=== PATIENT | male | born 1990 | race Caucasian/White ===

== ENCOUNTER 2017-01-26 09:55 | Emergency (ER) | payer MEDICAID ==
[~2017-01-26] VITALS: Ht 170.2 cm; Wt 85.7 kg
[2017-01-26 12:17] VITALS: BP 135/2
== END 2017-01-26 12:17 | disposition home or self-care (01) ==
LOC: ED 09:55
DX: M25.562 Pain in left knee (principal)
CPT/HCPCS: J1885

== ENCOUNTER 2017-03-21 18:06 | Emergency (ER) | payer SELFPAY ==
[~2017-03-21] VITALS: Ht 167.6 cm; Wt 84.4 kg
[2017-03-21 20:57] VITALS: BP 116/71
== END 2017-03-21 20:57 | disposition home or self-care (01) ==
LOC: ED 18:06
DX: S63.592A Other specified sprain of left wrist, initial encounter (principal); X58.XXXA Exposure to other specified factors, initial encounter; Y93.89 Activity, other specified; Y92.89 Other specified places as the place of occurrence of the external cause; Y99.8 Other external cause status
CPT/HCPCS: A4570

== ENCOUNTER 2018-04-05 02:25 | Inpatient (IN) | payer OTHER ==
[~2018-04-05] VITALS: Ht 170.2 cm; Wt 80.9 kg
[2018-04-05 02:36] VITALS: Ht 170.2 cm; Wt 80.9 kg
[2018-04-05 03:42] LABS: CALCIUM 8.9 mg/dL (8.5-10.1); CARBON DIOXIDE 27.7 mmol/L (21-32); CHLORIDE SERUM 100 mmol/L (98-107); CREATININE SERUM 0.8 mg/dL (0.7-1.3); GFR1 > 60 mL/min; GLUCOSE SERUM 116 mg/dL (74-106); POTASSIUM SERUM 3.5 mmol/L (3.5-5.1); SODIUM SERUM 138 mmol/L (136-145)
[2018-04-05 03:47] LABS: ALBUMIN 3.9 g/dL (3.4-5.0); ALKALINE PHOSPHATASE 83 U/L (46-116); ALT/SGPT 63 U/L (16-63); AST/SGOT 26 U/L (15-37); BILIRUBIN TOTAL 0.3 mg/dL (0.20-1.00); TOTAL PROTEIN, SERUM 7.5 g/dL (6.4-8.2)
[2018-04-05 04:00] VITALS: BP 130/87
[2018-04-05 04:00] LABS: PHOSPHOROUS 3.4 mg/dL (2.5-4.9)
[2018-04-05 04:01] LABS: CHOLESTEROL/HDL RATIO 4.3
[2018-04-05 04:03] LABS: T3 TOTAL 1.27 ng/mL
[2018-04-05 04:12] LABS: FREE THYROXINE INDEX 3.3 ug/dL (1.4-4.5)
[2018-04-05 04:20] LABS: BASOPHIL % 0.4 % (0-2); PLATELET COUNT 379 x10^3mcL (130-400); RED CELL DISTRIBUTION WIDTH 13.4 % (11.5-14.5)
[2018-04-05 08:17] LABS: microscopic required? NO
[2018-04-05 08:36] LABS: urine erythrocyte NEGATIVE (NEGATIVE)
[2018-04-05 09:25] LABS: AMPHETAMINE QUAL UR POSITIVE (NEG <=1000)
[2018-04-05] MEDS ORDERED: ANUHCC TOP (15:50)
[2018-04-05] MEDS ORDERED: IBUPROFEN600 MG PO (15:51)
[2018-04-05 16:06] VITALS: BP 97/53
[2018-04-05 16:57] VITALS: BP 97/53
[2018-04-05 17:07] VITALS: BP 92/65
== END 2018-04-05 18:34 | disposition home or self-care (01) | DRG 349 ==
LOC: ED 02:25 → DU 03:04 → MU 03:04 → DU 03:48 → MU 09:16
PROVIDERS: Emergency Medicine; Family Medicine; Surgery
PROC: 06BY0ZC Excision of Hemorrhoidal Plexus, Open Approach (ICD-10-PCS; principal; 2018-04-05 12:00)
DX: K64.5 Perianal venous thrombosis (principal); E78.2 Mixed hyperlipidemia; E66.9 Obesity, unspecified; F14.11 Cocaine abuse, in remission; Z68.27 Body mass index [BMI] 27.0-27.9, adult
CPT/HCPCS: 83880; 84439; 87491; 87591; 94150; J1885; J2270; J2405; J2704; J3010; J3490; J7030; J7120; Q0092

== ENCOUNTER 2018-05-03 01:20 | Emergency (ER) | payer OTHER ==
[~2018-05-03] VITALS: Ht 167.6 cm; Wt 80.7 kg
[~2018-05-03 01:20] MED LIST: ANUHCC TOP; IBUPROFEN600 MG PO
[2018-05-03 02:00] VITALS: Ht 167.6 cm; Wt 80.7 kg
[2018-05-03 04:51] LABS: CALCIUM 8.8 mg/dL (8.5-10.1); CARBON DIOXIDE 28.2 mmol/L (21-32); CHLORIDE SERUM 100 mmol/L (98-107); CREATININE SERUM 0.7 mg/dL (0.7-1.3); GFR1 > 60 mL/min; GLUCOSE SERUM 96 mg/dL (74-106); POTASSIUM SERUM 3.6 mmol/L (3.5-5.1); SODIUM SERUM 136 mmol/L (136-145)
[2018-05-03 04:56] LABS: ALBUMIN 3.9 g/dL (3.4-5.0); ALKALINE PHOSPHATASE 86 U/L (46-116); ALT/SGPT 53 U/L (16-63); AST/SGOT 23 U/L (15-37); BASOPHIL % 0.4 % (0-2); BILIRUBIN TOTAL 0.51 mg/dL (0.20-1.00); PLATELET COUNT 271 x10^3mcL (130-400); RED CELL DISTRIBUTION WIDTH 12.7 % (11.5-14.5); TOTAL PROTEIN, SERUM 7.1 g/dL (6.4-8.2)
[2018-05-03 04:59] LABS: AMPHETAMINE QUAL UR POSITIVE (See below)
[2018-05-03 07:42] VITALS: BP 167/64
== END 2018-05-03 07:42 | disposition home or self-care (01) ==
LOC: ED 01:20
PROVIDERS: Emergency Medicine
DX: R07.2 Precordial pain (principal)
CPT/HCPCS: 83880; J2405; J7030; Q0092